=== PATIENT | male | born 2005 | race African-American/Black ===

== ENCOUNTER 2023-08-09 11:22 | Emergency (ER) | payer SELFPAY ==
[2023-08-09 11:34] VITALS: BP 127/82; PULSE 56; TEMP 36.8; O2SAT 100; BMI 19.0
[2023-08-09] MEDS: ONDANSETRON PF 4 MG/2 ML VIAL IV (12:22)
[2023-08-09] MEDS: 0.9 % SODIUM CHLORIDE 1,000 ML 999 ML IV (12:22)
[2023-08-09 12:24] LABS: Basophils Percent Auto 0.3 % (0.2-2.0); Eosinophils Percent Auto 0.1 % (0.9-7.0); Hematocrit 45.3 % (42.0-54.0); Hemoglobin 15.1 g/dL (14.0-18.0); Immature Granulocytes Abs Auto 0.04 10^3/uL (0.00-0.03); Immature Granulocytes Pct Auto 0.3 % (0.0-0.5); Lymphocytes Absolute Auto 1.7 10^3/uL (1.2-3.8); Lymphocytes Percent Auto 11.5 % (20.5-60.0); Mean Corpuscular HGB Conc 33.3 g/dL (29.9-35.2); Mean Corpuscular Volume 90.1 fL (80.0-94.0); Mean Platelet Volume 8.9 fL (9.5-13.5); Monocytes Absolute Auto 0.4 10^3/uL (0.3-0.8); Monocytes Percent Auto 2.6 % (1.7-12.0); Neutrophils Absolute Auto 12.6 10^3/uL (1.4-6.5); Neutrophils Percent Auto 85.2 % (43.0-75.0); Platelet Count 242 10^3/uL (150-450); Red Blood Count 5.03 10^6/uL (4.70-6.10); Red Cell Distribution Width 12.4 % (11.0-15.0); White Blood Count 14.8 10^3/uL (4.0-11.0)
[2023-08-09 12:36] LABS: Alanine Aminotransferase 20 U/L (16-63); Albumin Globulin Ratio 1.6; Albumin Level 4.9 g/dL (3.4-5.0); Alkaline Phosphatase 75 U/L (46-116); Anion Gap 14.7; Aspartate Amino Transferase 24 U/L (15-37); BUN Creatinine Ratio 17.9; Bilirubin Total 0.7 mg/dL (0.2-1.0); Calcium 9.9 mg/dL (8.5-10.1); Carbon Dioxide 26.2 mmol/L (21.0-32.0); Chloride 102 mmol/L (98-107); Estimated GFR (African America >60 (>=60); Estimated GFR (Non-African Ame >60 (>=60); Glucose 119 mg/dL (74-106); Potassium 3.9 mmol/L (3.5-5.1); Sodium 139 mmol/L (136-145); Total Protein 7.9 g/dL (6.4-8.2)
--- NOTE | 2023-08-09 12:51 | ED_ITS ---
HPI HPI - General Adult General Chief complaint: Abdominal Pain Stated complaint: NAUSEA AND VOMITING, ABDOMINAL PAIN Time Seen by Provider: 08/09/23 12:04 Source: patient Mode of arrival: Wheelchair Limitations: no limitations History of Present Illness HPI narrative: Patient presents to ED complaining of generalized abdominal pain nausea vomiting for the past couple of days. He reports that he went to [facility] on Monday and he was in the waiting room for a couple of hours so he decided to leave. He is continued to have a lot of vomiting and not able to keep anything down. No fever here.Vital signs stable.He reports generalized pain. He is supposed to get an ultrasound of the right upper quadrant tomorrow that was ordered by his primary doctor. He states his pain is not really localized to the right upper quadrant but is hard to tell where his pain is it sort of diffuse per patient. Related Data Previous Rx's ?Medication ?Instructions ?Recorded ondansetron 4 mg disintegrating 4 mg PO DAILY PRN nausea and 08/09/23 tablet vomiting #15 tabs Allergies Allergy/AdvReac Type Severity Reaction Status Date / Time ibuprofen [From Motrin] Allergy Severe Anaphylaxis Verified 08/09/23 11:34 Opioid HPI Opioid Management Most Recent Opioid Data: Last JUN Pain Assessment 08/09/23 13:01 Review of Systems ROS Status of ROS 10 or more systems reviewed and unremark able except as noted in history and below Exam Narrative Exam Narrative: Time Seen: [] Vital Signs: [Per nurse's notes.] General: [Alert] Skin: [Warm, dry, no rash.] Head: [Normocephalic, atraumatic.] Neck: [Supple, trachea midline.] Eye: [Pupils are equal, round and reactive to light, extraocular movements are intact, normal conjunctiva.] Ears, nose, mouth and throat: oral mucosa moist. Cardiovascular: [Regular rate and rhythm, no murmur.] Respiratory: [Lungs are clear to auscultation, respirations are non-labored, breath sounds are equal.] Chest wall: [No tenderness, no deformity.] Gastrointestinal: [Soft, Mild diffuse tenderness non distended, normal bowel sounds.] MSK: 5 out of 5 muscle strength x 4 extremities no calf pain or edema Lymphatics: [No lymphadenopathy.] Psychiatric: [Cooperative, appropriate mood & affect.] Neurological: [Alert and oriented to person, place, time, and situation, no focal neurological deficit observed.] Constitutional Vital Signs, click to edit/add: Last Vital Signs Temp 98.3 F 08/09/23 11:34 Pulse 56 L 08/09/23 11:34 Resp 20 08/09/23 11:34 BP 127/82 08/09/23 11:34 Pulse Ox 100 08/09/23 11:34 O2 Del Method Room Air 08/09/23 11:34 Course Vital Signs Vital signs: Vital Signs Temperature 98.3 F 08/09/23 11:34 Pulse Rate 56 L 08/09/23 11:34 Respiratory Rate 20 08/09/23 11:34 Blood Pressure 127/82 08/09/23 11:34 Pulse Oximetry 100 08/09/23 11:34 Oxygen Delivery Method Room Air 08/09/23 11:34 Temperature 98.3 F 08/09/23 11:34 Pulse Rate 56 L 08/09/23 11:34 Respiratory Rate 20 08/09/23 11:34 Blood Pressure 127/82 08/09/23 11:34 Pulse Oximetry 100 08/09/23 11:34 Oxygen Delivery Method Room Air 08/09/23 11:34 Medical Decision Making MDM Narrative Medical decision making narrative: Patient had an elevated white blood cell count therefore I ordered a CT abdomen pelvis. CT abdomen pelvis was negative for anything acute. Again vitals are stable and labs are otherwise nonacute. Differential Diagnosis Differential Diagnosis: Viral gastroenteritis, appendicitis, bowel obstruction, UTI, Lab Data Lab results reviewed: Yes I reviewed the patient's lab results Labs: Lab Results 08/09/23 Range/Units 12:10 WBC 14.8 H (4.0-11.0) 10^3/uL RBC 5.03 (4.70-6.10) 10^6/uL Hgb 15.1 (14.0-18.0) g/dL Hct 45.3 (42.0-54.0) % MCV 90.1 (80.0-94.0) fL MCH 30.0 (25.9-34.0) pg MCHC 33.3 (29.9-35.2) g/dL RDW 12.4 (11.0-15.0) % Plt Count 242 (150-450) 10^3/uL MPV 8.9 L (9.5-13.5) fL Neut % (Auto) 85.2 H (43.0-75.0) % Lymph % (Auto) 11.5 L (20.5-60.0) % [place] % (Auto) 2.6 (1.7-12.0) % Eos % (Auto) 0.1 L (0.9-7.0) % Baso % (Auto) 0.3 (0.2-2.0) % Neut # (Auto) 12.6 H (1.4-6.5) 10^3/uL Lymph # (Auto) 1.7 (1.2-3.8) 10^3/uL [place] # (Auto) 0.4 (0.3-0.8) 10^3/uL Eos # (Auto) 0.0 (0.0-0.7) 10^3/uL Baso # (Auto) 0.0 (0.0-0.1) 10^3/uL Abs Immat Gran (auto) 0.04 H (0.00-0.03) 10^3/uL Imm/Tot Granulo (auto) 0.3 (0.0-0.5) % Sodium 139 (136-145) mmol/L Potassium 3.9 (3.5-5.1) mmol/L Chloride 102 (98-107) mmol/L Carbon Dioxide 26.2 (21.0-32.0) mmol/L Anion Gap 14.7 BUN 20.0 H (6.4-19.3) mg/dL Creatinine 1.12 (0.70-1.30) mg/dL Est GFR ( Amer) >60 (>=60) Est GFR (Non-Af Amer) >60 (>=60) BUN/Creatinine Ratio 17.9 Glucose 119 H (74-106) mg/dL Calcium 9.9 (8.5-10.1) mg/dL Total Bilirubin 0.7 (0.2-1.0) mg/dL AST 24 (15-37) U/L ALT 20 (16-63) U/L Alkaline Phosphatase 75 (46-116) U/L Total Protein 7.9 (6.4-8.2) g/dL Albumin 4.9 (3.4-5.0) g/dL Globulin 3.0 g/dL Albumin/Globulin Ratio 1.6 Lipase 17.0 (16.0-77.0) U/L Imaging Data CT scan - abdomen: Radiologist's impression: ITS Impressions Abdomen/Pelvis CT 08/09/23 13:16 IMPRESSION: No acute intraperitoneal abnormality. Electronically authenticated by: JEFF MENJIVAR Date: 08/09/2023 14:18 Discharge Plan Discharge Stand Alone Forms: Portal Instructions Chief Complaint: Abdominal Pain Clinical Impression: Gastroenteritis Patient Disposition: Home, Self-Care Time of Disposition Decision: 14:26 Mode of Transportation: Private Vehicle Prescriptions / Home Meds: New ondansetron 4 mg tablet,disintegrating 4 mg PO DAILY PRN (Reason: nausea and vomiting) Qty: 15 0RF Print Language: Pashto Instructions: Gastroenteritis (ED) Referrals: ORAL KIRKPATRICK [Primary Care Provider] - 1 week
[2023-08-09] MEDS: KETOROLAC TROMETHAMINE 30 MG/ML VIAL 15 MG IVP (13:01)
--- NOTE | 2023-08-09 13:16 | CT_ITS ---
[address] [address] Patient Name: ANIBAL CANO MRN: [id number] date: 2005 Sex: M Assigned Patient Location: ER Current Patient Location: ER Accession/Order Number: [id number] Exam Date: 08/09/2023 13:06 Report Date: 08/09/2023 14:18 At the request of: JUAN CARLOS LINK Procedure: CT abdomen pelvis w con EXAMINATION: CT abdomen pelvis w con HISTORY: abd pain elevated WBC , nausea, vomiting COMPARISON: No relevant comparison available. TECHNIQUE: CT images were created with IV contrast. Axial, Coronal, and Sagittal images. Dose reduction techniques were achieved by using automated exposure control and/or adjustment of mA and/or kV according to patient size and/or use of iterative reconstruction technique. FINDINGS: LUNG BASES: No visible pulmonary or pleural disease. LIVER: No enlargement, atrophy, abnormal density, or significant focal lesion. BILIARY: No visible dilatation or calcification. PANCREAS: No lesion, fluid collection, ductal dilatation, or atrophy. SPLEEN: No enlargement or focal lesion. ADRENALS: No mass or enlargement. KIDNEYS: No mass, obstruction, or calcification. BOWEL/MESENTERY: No visible mass, obstruction, or bowel wall thickening. The appendix is partially visualized axial image 112, grossly normal AORTA/VASCULAR: No aneurysm or dissection. RETROPERITONEUM: No mass or adenopathy. LYMPH NODES: No adenopathy. URINARY BLADDER: No visible focal wall thickening, lesion, or calculus. PELVIC ORGANS: No visible mass. Pelvic organs appropriate for patient age. ABDOMINAL WALL: No mass or hernia. BONES: No bony lesion or fracture. OTHER: Limited exam without oral contrast and lack of intraperitoneal fat. Structures CT/CT abdomen pelvis w con IMPRESSION: No acute intraperitoneal abnormality. Electronically authenticated by: JEFF MENJIVAR Date: 08/09/2023 14:18
[2023-08-09 15:01] VITALS: BP 118/83; PULSE 53; O2SAT 100
== END 2023-08-09 15:06 | disposition home or self-care (01) ==
PROVIDERS: Emergency Provider Emergency Medicine; PCP Nurse Practitioner Family
DX: K52.9 Noninfective gastroenteritis and colitis, unspecified (principal)
CPT/HCPCS: 36415; 74177; 80053; 83690; 85025; 96374; 96375; 99285; Q9967